=== PATIENT | male | born 2000 | race Hispanic/Latino ===

== ENCOUNTER 2020-08-22 14:17 | Emergency (ER) | payer OTHER ==
[2020-08-22 14:22] VITALS: BP 129/67
[2020-08-22] MEDS ORDERED: NAPR-1180 PO (15:34)
[2020-08-22] MEDS ORDERED: ACETAMINOPHEN 325 MG TAB PO ONE (16:05)
== END 2020-08-22 15:43 | disposition home or self-care (01) ==
LOC: EDH 14:17
DX: S63.92XA Sprain of unspecified part of left wrist and hand, initial encounter (principal); V49.49XA Driver injured in collision with other motor vehicles in traffic accident, initial encounter; Y93.89 Activity, other specified; Y92.89 Other specified places as the place of occurrence of the external cause; Y99.8 Other external cause status
CPT/HCPCS: 73100; 73130

== ENCOUNTER 2022-03-20 15:39 | Emergency (ER) | payer OTHER ==
[~2022-03-20 15:39] MED LIST: NAPR-1180 PO
== END 2022-03-20 18:02 | disposition left against medical advice (07) ==
LOC: EDH 15:39
DX: R68.89 Other general symptoms and signs (principal); Z53.21 Procedure and treatment not carried out due to patient leaving prior to being seen by health care provider